=== PATIENT | female | born 1965 | race Caucasian/White ===

== ENCOUNTER 2017-07-01 07:45 | Emergency (ER) | payer BC ==
[~2017-07-01] VITALS: Ht 170.2 cm; Wt 76.1 kg
[2017-07-01 08:54] LABS: CHLORIDE 105 mEq/L (99-109); GLUCOSE 100 mg/dL (70-99); POTASSIUM 4.6 mEq/L (3.7-5.4); SODIUM 140 mEq/L (136-147)
[2017-07-01 08:58] LABS: CREATININE 0.8 mg/dL (0.6-1.3); GFR ESTIMATE (CALCULATED) > 59 mL/min/
[2017-07-01 08:59] LABS: UREA NITROGEN (BUN) 15 mg/dL (9-23)
[2017-07-01 09:07] LABS: TROP-I INTERPRETATION NEGATIVE; TROPONIN-I < 0.01 ng/mL (0.0-0.30)
[2017-07-01 09:12] LABS: HEMATOCRIT 47.6 % (36.0-46.0); HEMOGLOBIN 16.5 G/DL (11.9-15.5); MCH 31.6 PG (29.0-34.0); MCHC 34.7 G/DL (30.0-36.0); MCV 91.2 FL (83-99); PLATELET COUNT 292 K/uL (156-360); RBC DIS.WIDTH-CV 13.8 % (11.8-14.6); RBC DIS.WIDTH-SD 46.2 % (39-53); RED BLOOD COUNT 5.22 M/uL (3.80-5.20); WHITE BLOOD COUNT 16.1 K/uL (4.1-10.2)
[2017-07-01 09:23] LABS: PTT 27.8 SEC (25-37)
[2017-07-01 09:24] LABS: SERUM ETHYL ALCOHOL < 10 mg/dL
[2017-07-01 09:42] LABS: AMPHETAMINE NEGATIVE (500 ng/mL); BARBITURATES NEGATIVE (200 ng/mL); BENZODIAZEPINES NEGATIVE (150 ng/mL); BUPRENORPHINE NEGATIVE (10 ng/mL); COCAINE NEGATIVE (150 ng/mL); METHADONE NEGATIVE (200 ng/mL); METHAMPHETAMINE NEGATIVE (500 ng/mL); OPIATES (MORPHINE) NEGATIVE (100 ng/mL); OXYCODONE NEGATIVE (100 ng/mL); PHENCYCLIDINE NEGATIVE (25 ng/mL); PROPOXYPHENE NEGATIVE (300 ng/mL); THC CANNABINOIDS NEGATIVE (50 ng/mL); TRICYCLIC ANTIDEPRESSANTS NEGATIVE (300 ng/mL)
[2017-07-01 10:06] VITALS: BP 115/84
== END 2017-07-01 10:07 | disposition home or self-care (01) ==
LOC: EME 07:45
PROVIDERS: Emergency Medicine
DX: R55 Syncope and collapse (principal); E86.0 Dehydration; R11.0 Nausea; R61 Generalized hyperhidrosis; R91.8 Other nonspecific abnormal finding of lung field; F17.200 Nicotine dependence, unspecified, uncomplicated
CPT/HCPCS: 71046; 80048; 83880; 84484; 85027; 85610; 85730; 93005; 99281; 99283; G0480